=== PATIENT | male | born 1965 | race Caucasian/White ===

== ENCOUNTER 2016-11-23 21:48 | Emergency (ER) | payer MEDICAID | END 2016-11-23 22:39 | disposition left against medical advice (07) | LOC: ER 21:48 | DX: Z53.20 Procedure and treatment not carried out because of patient's decision for unspecified reasons (principal) ==

== ENCOUNTER 2017-05-06 21:44 | Emergency (ER) | payer MEDICAID ==
[2017-05-06] MEDS ORDERED: DIAZEPAM 5 MG TABLET PO ONE (22:04)
[2017-05-06] MEDS ORDERED: NAPROXEN 250 MG TABLET PO ONE (22:04)
--- NOTE | 2017-05-06 22:05 | Emergency Department Record ---
History of Present Illness - General Chief complaint: Lower Extremity Pain Stated complaint: SHARP LEG PAIN Time Seen by Provider: 05/06/17 22:01 Source: Patient Mode of Arrival: Ambulatory Limitations: No limitations - History of Present Illness Initial comments: 51 yo male presents to ED with a 2-day history of left inner thigh pain with walking. Patient denies specific strain or injury, and denies weakness, numbness, or tingling to the lower leg. Patient denies history of similar symptoms. MD Complaint: Extremity pain Onset/Timin -: Days(s) Location: Left, Thigh Severity scale (1-10): 10 Quality: Sharp Consistency: Constant Improves with: Nothing Worsens with: Nothing Associated Symptoms: Denies other symptoms - Related Data Previous Rx's Medication Instructions Recorded Diazepam [Valium] 5 mg PO Q8H #10 tab 05/06/17 Naproxen [Naprosyn] 500 mg PO BID #30 tablet 05/06/17 Allergies Allergy/AdvReac Type Severity Reaction Status Date / Time tramadol Allergy ITCHING Verified 05/13/16 17:01 Travel Screening - Travel/Exposure Within Last 30 Days Have you traveled within the last 30 days?: No Review of Systems Constitutional: Denies: Chills, Fever, Malaise, Night sweats Eyes: Denies: Eye discharge, Eye pain ENT: Denies: Congestion, Ear pain Respiratory: Denies: Cough, Dyspnea Cardiovascular: Denies: Chest pain, Dyspnea on exertion Endocrine: Denies: Fatigue, Heat or cold intolerance Gastrointestinal: Denies: Abdominal pain, Nausea, Vomiting Genitourinary: Denies: Incontinence, Retention Musculoskeletal: Reports: Myalgia. Denies: Arthralgia, Back pain, Gout, Joint swelling Skin: Denies: Bruising, Change in color Neurological: Denies: Abnormal gait, Confusion, Headache, Seizure Hematological/Lymphatic: Denies: Blood Clots Past Medical History - SOCIAL HISTORY Smoking Status: Current every day smoker Alcohol Use: None Drug Use: None - RESPIRATORY Hx Respiratory Disorders: No - CARDIOVASCULAR Hx Cardio Disorders: No - NEURO Hx Neuro Disorders: Yes Hx Headaches: Yes - GI Hx GI Disorders: No - Hx Genitourinary Disorders: No - ENDOCRINE Hx Endocrine Disorders: No - MUSCULOSKELETAL Hx Musculoskeletal Disorders: No - PSYCH Hx Psych Problems: Yes Hx Depression: Yes - HEMATOLOGY/ONCOLOGY Hx Hematology/Oncology Disorders: No Family Medical History Any Significant Family History?: Yes Hx Cancer: Grandparents Hx Heart Disease: Mother Physical Exam - General General Appearance: Alert, Oriented x3, Cooperative, Mild distress Limitations: No limitations - Head Head exam: Atraumatic, Normocephalic, Normal inspection Head exam detail: negative: Abrasion, Contusion, Zhang's sign, General tenderness, Hematoma, Laceration - Eye Eye exam: Normal appearance. negative: Conjunctival injection, Periorbital swelling, Periorbital tenderness, Scleral icterus - ENT Ear exam: negative: Auricular hematoma, Auricular trauma Nasal Exam: negative: Active bleeding, Discharge, Dried blood, Foreign body Mouth exam: negative: Drooling, Laceration, Muffled voice, Tongue elevation - Neck Neck exam: Normal inspection. negative: Meningismus, Tenderness - Respiratory Respiratory exam: Normal lung sounds bilaterally. negative: Rales, Respiratory distress, Rhonchi, Stridor - Cardiovascular Cardiovascular Exam: Regular rate, Normal rhythm, Normal heart sounds Peripheral Pulses: 3+: Dorsalis Pedis (L) - GI/Abdominal GI/Abdominal exam: Soft. negative: Rebound, Rigid, Tenderness - Rectal Rectal exam: Deferred - exam: Deferred - Extremities Extremities exam: Full ROM, Tenderness, Other (TTP to the proximal, medial thigh muscles on examination. No edema present, no calf pain/popliteal pain to suggest DVT on examination. Strong DPP present.). negative: Calf tenderness, Pedal edema - Back Back exam: Denies: CVA tenderness (R), CVA tenderness (L) - Neurological Neurological exam: Alert, Normal gait, Oriented X3 - Psychiatric Psychiatric exam: Normal affect, Normal mood - Skin Skin exam: Normal color. negative: Abrasion Type of lesion: negative: abrasion Course Vital Signs 05/06/17 21:50 Temperature 98.3 F Pulse Rate [ 111 H Pulse Ox Probe] Respiratory 20 Rate Blood Pressure 150/97 [Left Arm] Pulse Ox 98 - Reevaluation(s) Reevaluation #1: 05/06/17 22:08 Symptoms appear c/w with medial thigh muscle strain given his clinical examination and tenderness. No clinical evidence for DVT on examination. Will treat with Valium and Naprosyn for his symptoms. Disposition Disposition: Discharge Clinical Impression: Left thigh pain Disposition: Home, Self-Care Condition: (2) Stable Instructions: Muscle Strain (ED) Additional Instructions: Return to ED if your symptoms worsen or if you have any concerns. Valium and Naprosyn as directed. Follow-up with your family doctor in 3-5 days as directed. Prescriptions: Diazepam [Valium] 5 mg PO Q8H #10 tab Naproxen [Naprosyn] 500 mg PO BID #30 tablet Forms: Patient Portal Access Time of Disposition: 22:04 Quality - Quality Measures Quality Measures: N/A - Blood Pressure Screening Does Patient Have Any of the Following: No Blood Pressure Classification: Pre-Hypertensive BP Reading Systolic Measurement: 144 Diastolic Measurement: 88 Screening for High Blood Pressure: < Pre-Hypertensive BP, F/U Documented > [ G8950] Pre-Hypertensive Follow-up Interventions: Referral to alternative/primary care provider.
== END 2017-05-06 22:14 | disposition home or self-care (01) ==
LOC: ER 21:44
DX: S76.812A Strain of other specified muscles, fascia and tendons at thigh level, left thigh, initial encounter (principal); X58.XXXA Exposure to other specified factors, initial encounter
CPT/HCPCS: 99282

== ENCOUNTER 2017-08-03 17:13 | Emergency (ER) | payer MEDICAID ==
[2017-08-03 17:43] LABS: INFLUENZA A NEGATIVE (NEGATIVE); INFLUENZA B NEGATIVE (NEGATIVE)
--- NOTE | 2017-08-03 17:56 | Emergency Department Record ---
History of Present Illness - General Chief complaint: Flu Like Symptoms Stated complaint: FLU-LIKE SYMPTOMS Time Seen by Provider: 08/03/17 17:47 Source: Patient Mode of Arrival: Ambulatory Limitations: No limitations - History of Present Illness Initial comments: pt has been sick for a month. he has a cough productive green, congestion green , body aches, plugged ears. he has not had a fever MD Complaint: Lack of energy Onset/Timin -: Month(s) Consistency: Constant Improves with: None Worsens with: None Associated Symptoms: Headaches, Other - Corey Coma Scale Eye Response: (4) Open spontaneously Motor Response: (6) Obeys commands Verbal Response: (5) Oriented Corey Total: 15 - Related Data Previous Rx's Medication Instructions Recorded Naproxen [Naprosyn] 500 mg PO BID #30 tablet 05/06/17 Azithromycin [Zithromax] 250 mg PO DAILY #6 tab 08/03/17 Allergies Allergy/AdvReac Type Severity Reaction Status Date / Time tramadol Allergy ITCHING Verified 08/03/17 17:44 Travel Screening - Travel/Exposure Within Last 30 Days Have you traveled within the last 30 days?: No - Travel/Exposure Within Last Year Have you traveled outside the [place] in the last year?: No - Additonal Travel Details Have you been exposed to anyone with a communicable illness?: No - Travel Symptoms Symptom Screening: None Review of Systems Reviewed: No additional complaints except as noted below Constitutional: Reports: As per HPI. Denies: Chills, Fever, Malaise, Night sweats, Weakness, Weight change Eyes: Reports: As per HPI. Denies: Eye discharge, Eye pain, Photophobia, Vision change ENT: Reports: As per HPI. Denies: Congestion, Dental pain, Ear pain, Epistaxis , Hearing loss, Throat pain Respiratory: Reports: As per HPI. Denies: Cough, Dyspnea, Hemoptysis, Stridor, Wheezes Cardiovascular: Reports: As per HPI. Denies: Arrhythmia, Chest pain, Dyspnea on exertion, Edema, Murmurs, Orthopnea, Palpitations, Paroxysmal nocturnal dyspnea, Rheumatic Fever, Syncope Endocrine: Reports: As per HPI. Denies: Fatigue, Heat or cold intolerance, Polydipsia, Polyuria Gastrointestinal: Reports: As per HPI. Denies: Abdominal pain, Constipation, Diarrhea, Hematemesis, Hematochezia, Melena, Nausea, Vomiting Genitourinary: Reports: As per HPI. Denies: Dysuria, Frequency, Hematuria, Incontinence, Retention, Testicular pain, Testicular mass, Urgency Musculoskeletal: Reports: As per HPI. Denies: Arthralgia, Back pain, Gout, Joint swelling, Myalgia, Neck pain Skin: Reports: As per HPI. Denies: Bruising, Change in color, Change in hair/ nails, Lesions, Pruritus, Rash Neurological: Reports: As per HPI. Denies: Abnormal gait, Confusion, Headache, Numbness, Paresthesias, Seizure, Tingling, Tremors, Vertigo, Weakness Psychiatric: Reports: As per HPI. Denies: Anxiety, Auditory hallucinations, Depression, Homicidal thoughts, Suicidal thoughts, Visual hallucinations Hematological/Lymphatic: Reports: As per HPI. Denies: Anemia, Blood Clots, Easy bleeding, Easy bruising, Swollen glands Past Medical History - SOCIAL HISTORY Smoking Status: Light tobacco smoker (<10/day) Alcohol Use: None Drug Use: None - RESPIRATORY Hx Respiratory Disorders: No - CARDIOVASCULAR Hx Cardio Disorders: No - NEURO Hx Neuro Disorders: Yes Hx Headaches: Yes - GI Hx GI Disorders: No - Hx Genitourinary Disorders: No - ENDOCRINE Hx Endocrine Disorders: No - MUSCULOSKELETAL Hx Musculoskeletal Disorders: No - PSYCH Hx Psych Problems: Yes Hx Depression: Yes - HEMATOLOGY/ONCOLOGY Hx Hematology/Oncology Disorders: No Family Medical History Any Significant Family History?: No Hx Cancer: Grandparents Hx Heart Disease: Mother Physical Exam - General General Appearance: Alert, Oriented x3, Cooperative, Mild distress - Head Head exam: Normal inspection - Eye Eye exam: Normal appearance, PERRL, EOMI Pupils: Normal accommodation - ENT ENT exam: Normal exam, Mucous membranes moist, Normal external ear exam, Normal orophraynx, TM's normal bilaterally Ear exam: Normal external inspection. negative: External canal tenderness Nasal Exam: Normal inspection. negative: Discharge, Sinus tenderness Mouth exam: Normal external inspection, Tongue normal Teeth exam: Normal inspection. negative: Dental caries Throat exam: Normal inspection. negative: Tonsillar erythema, Tonsillar exudate - Neck Neck exam: Normal inspection, Full ROM. negative: Tenderness - Respiratory Respiratory exam: Normal lung sounds bilaterally. negative: Respiratory distress - Cardiovascular Cardiovascular Exam: Regular rate, Normal rhythm, Normal heart sounds - GI/Abdominal GI/Abdominal exam: Soft, Normal bowel sounds. negative: Tenderness - Rectal Rectal exam: Deferred - exam: Deferred - Extremities Extremities exam: Normal inspection, Full ROM, Normal capillary refill. negative: Tenderness - Back Back exam: Reports: Normal inspection, Full ROM. Denies: Muscle spasm, Rash noted, Tenderness - Neurological Neurological exam: Alert, CN II-XII intact, Normal gait, Oriented X3 - Psychiatric Psychiatric exam: Normal affect, Normal mood - Skin Skin exam: Dry, Intact, Normal color, Warm Course Vital Signs 08/03/17 17:37 Temperature 98.4 F Pulse Rate 97 H Respiratory 18 Rate Blood Pressure 137/98 Pulse Ox 98 Medical Decision Making - Lab Data Lab Results 08/03/17 Range/Units 17:21 Influenza Type A Ag Negative (NEGATIVE) Influenza Type B Ag Negative (NEGATIVE) Disposition Disposition: Discharge Clinical Impression: Bronchitis Disposition: Home, Self-Care Condition: (1) Good Instructions: Acute Bronchitis (ED) Additional Instructions: follow up with family doctor. return sooner if worse. rest. Prescriptions: Azithromycin [Zithromax] 250 mg PO DAILY #6 tab Forms: Patient Portal Access Quality - Quality Measures Quality Measures: N/A - Blood Pressure Screening Does Patient Have Any of the Following: No Blood Pressure Classification: Hypertensive Reading Systolic Measurement: 137 Diastolic Measurement: 98 Screening for High Blood Pressure: < First Hypertensive BP, F/U Documented > [ G8950] First Hypertensive Follow-up Interventions: Follow-up with rescreen GT 1 day and LT 4 weeks.
--- NOTE | 2017-08-04 15:09 | RADIOLOGY REPORT ---
EXAM: CHEST, TWO VIEWS HISTORY: COUGH, STUFFY NOSE, PLUGGED EARS. TECHNIQUE: PA and lateral views of the chest were obtained. Comparison: Two view chest 06/06/14. FINDINGS: The heart size is within normal limits. No definite acute infiltrate seen. No pleural effusion or pneumothorax evident. IMPRESSION: THE CHEST APPEARS ESSENTIALLY NEGATIVE WITH NO ACUTE INFILTRATE IDENTIFIED. JOB NUMBER: [id number] MTDD
== END 2017-08-03 18:49 | disposition home or self-care (01) ==
LOC: ER 17:13
DX: J20.9 Acute bronchitis, unspecified (principal); F17.210 Nicotine dependence, cigarettes, uncomplicated
CPT/HCPCS: 71046; 87400; 99283

== ENCOUNTER 2017-12-24 01:32 | Emergency (ER) | payer MEDICAID ==
--- NOTE | 2017-12-24 02:01 | Emergency Department Record ---
History of Present Illness - General Chief Complaint: Back Pain/Injury Stated Complaint: RT HIP/BACK "SCIATIC PAIN" Time Seen by Provider: 12/24/17 01:51 Source: Patient Mode of Arrival: Ambulatory Limitations: No limitations - History of Present Illness Initial Comments: 52 yo male presents with low right sided lumbar pain that radiates down his leg. The pain is sharp and occurs with certain movements. No weakness or numbness. The pain radiates does the entire leg. No changes in urination or bowel function. If he is still the pain is minimal. If he turns he gets a sudden pain in the lumbar area. No abdominal pain. No history of back surgery. He was seen the the [facility] in October. He had XRs then that demonstrated minor anterior wedging of L1, no fracture, multilevel degenerative changes. MD Complaint: Back pain Onset/Timin -: Days(s) Place: Home Radiation: Right leg Severity scale (1-10): 10 Quality: Aching Consistency: Constant, Getting worse Worsens With: Movement Context: Unknown - Related Data Home Medications Medication Instructions Recorded Confirmed Last Taken Amlodipine Besylate [Norvasc] 5 mg PO DAILY 12/24/17 12/24/17 12/23/17 Previous Rx's Medication Instructions Recorded Prednisone [Prednisone 20Mg] 20 mg PO DAILY #5 tab 12/24/17 Allergies Allergy/AdvReac Type Severity Reaction Status Date / Time tramadol Allergy ITCHING Verified 12/24/17 01:41 Travel Screening - Travel/Exposure Within Last 30 Days Have you traveled within the last 30 days?: No - Travel Symptoms Symptom Screening: None Review of Systems Constitutional: Denies: Chills, Fever, Malaise, Weakness Eyes: Denies: Eye discharge ENT: Denies: Congestion, Throat pain Respiratory: Denies: Cough, Dyspnea Cardiovascular: Denies: Chest pain, Dyspnea on exertion, Edema, Palpitations, Syncope Endocrine: Denies: Fatigue Gastrointestinal: Denies: Abdominal pain, Diarrhea, Nausea, Vomiting Genitourinary: Denies: Dysuria, Frequency, Hematuria Musculoskeletal: Reports: Back pain, Myalgia. Denies: Arthralgia, Joint swelling, Neck pain Skin: Denies: Bruising, Change in color, Rash Neurological: Denies: Abnormal gait, Confusion, Headache, Numbness, Tingling, Tremors, Vertigo, Weakness Psychiatric: Denies: Anxiety Hematological/Lymphatic: Denies: Easy bleeding, Easy bruising Past Medical History - SOCIAL HISTORY Smoking Status: Light tobacco smoker (<10/day) - RESPIRATORY Hx Respiratory Disorders: No - CARDIOVASCULAR Hx Cardio Disorders: Yes Hx Hypertension: Yes - NEURO Hx Neuro Disorders: Yes Hx Headaches: Yes - GI Hx GI Disorders: No - Hx Genitourinary Disorders: No - ENDOCRINE Hx Endocrine Disorders: No - MUSCULOSKELETAL Hx Musculoskeletal Disorders: Yes Hx Arthritis: Yes - PSYCH Hx Psych Problems: Yes Hx Depression: Yes - HEMATOLOGY/ONCOLOGY Hx Hematology/Oncology Disorders: No Family Medical History Any Significant Family History?: Yes Hx Cancer: Grandparents Hx Heart Disease: Mother Physical Exam - General General Appearance: Alert, Oriented x3, Cooperative, No acute distress Limitations: No limitations - Head Head exam: Atraumatic, Normal inspection - Eye Eye exam: Normal appearance. negative: Conjunctival injection - ENT ENT exam: Normal exam, Mucous membranes moist Ear exam: Normal external inspection Nasal Exam: Normal inspection Mouth exam: Normal external inspection - Neck Neck exam: Normal inspection, Full ROM. negative: Tenderness - Respiratory Respiratory exam: Normal lung sounds bilaterally. negative: Respiratory distress - Cardiovascular Cardiovascular Exam: Regular rate, Normal rhythm, Normal heart sounds - GI/Abdominal GI/Abdominal exam: Soft. negative: Distended, Guarding, Mass, Pulsatile mass, Rebound, Tenderness - Rectal Rectal exam: Deferred - exam: Deferred - Extremities Extremities exam: Normal inspection, Normal capillary refill. negative: Calf tenderness, Full ROM, Pedal edema, Tenderness Image of Full Body: 1 - tender to palpation, pain with leg raise to 30 degrees, hip flexion intact , foot flexion and extenison intact, sensation intact - Back Back exam: Reports: Muscle spasm, Paraspinal tenderness, Vertebral tenderness. Denies: CVA tenderness (R), CVA tenderness (L) - Neurological Neurological exam: Alert, Oriented X3 - Psychiatric Psychiatric exam: Normal affect, Normal mood. negative: Agitated, Anxious - Skin Skin exam: Dry, Intact, Normal color, Warm Course Vital Signs 12/24/17 01:34 Temperature 98.2 F Pulse Rate 98 H Respiratory 20 Rate Blood Pressure 129/93 Pulse Ox 97 - Reevaluation(s) Reevaluation #1: 12/24/17 02:28 The pain is improving We discussed home care and reasons to return to the ED He is to call his PCP The lumbar pain with right leg symptoms have occurred in the past. He may require MRI of the lumbar area if the pain continues Disposition Disposition: Discharge Clinical Impression: Sciatica Qualifiers: Laterality: right Qualified Code(s): M54.31 - Sciatica, right side Disposition: Home, Self-Care Condition: (1) Good Instructions: Sciatica (ED) Additional Instructions: Call your doctor for a recheck first of the week Return if the pain is uncontrolled, worse, and new symptoms such as weakness, numbness, changes in the bowel or bladder function You may need an outpatient MRI of the spine if the pain is not improving. You may take your Flexeril every 8 hours Prescriptions: Prednisone [Prednisone 20Mg] 20 mg PO DAILY #5 tab Forms: Patient Portal Access Time of Disposition: 02:24 Quality - Quality Measures Quality Measures: N/A, Headache (All Ages) - Headache: Neuroimaging Quality Measure: Measure #419: Overuse of Neuroimaging ICD10 Codes Entered: Yes Neurological Exam: Patient had a normal neurological exam. [G9535] Headache: Use of Neuroimaging: < CTA, CT, MRA or MRI was NOT ordered > [G9534] - Blood Pressure Screening Does Patient Have Any of the Following: Active Dx of HTN Blood Pressure Classification: Hypertensive Reading Systolic Measurement: 129 Diastolic Measurement: 93 Screening for High Blood Pressure: Patient Exclusion, Hx of HTN [G9744] Pre-Hypertensive Follow-up Interventions: Referral to alternative/primary care provider.
[2017-12-24] MEDS: KETOROLAC 30 MG/ML VIAL IM ONE (02:06)
[2017-12-24] MEDS: PREDNISONE 20 MG TAB PO ONE (02:08)
[2017-12-24] MEDS: HYDROCODONE/APAP 5/325MG TABLET PO ONE (02:34)
== END 2017-12-24 02:39 | disposition home or self-care (01) ==
LOC: ER 01:32
DX: M54.31 Sciatica, right side (principal); I10 Essential (primary) hypertension; F17.210 Nicotine dependence, cigarettes, uncomplicated
CPT/HCPCS: 96372; 99283; J1885; J7512

== ENCOUNTER 2017-12-27 10:26 | Emergency (ER) | payer MEDICAID ==
[2017-12-27] MEDS ORDERED: KETOROLAC 30 MG/ML VIAL IVP ONE (10:35)
[2017-12-27] MEDS ORDERED: MORPHINE SULFATE 10 MG/ML VIAL IVP ONE (10:35)
--- NOTE | 2017-12-27 10:36 | Emergency Department Record ---
History of Present Illness - General Chief Complaint: Back Pain/Injury Stated Complaint: BACK SPASMS Time Seen by Provider: 12/27/17 10:30 Source: Patient Mode of Arrival: Ambulatory Limitations: No limitations - History of Present Illness Initial Comments: 52 yo male presents with back pain, spasm. The symptoms started on Wednesday. His symptoms started in the back, down the leg. The leg is much improved. His back still has muscle spasms with movements. His right arm movement causes the pain to occur. No fevers, chills, nausea, vomiting or other current symptoms. No headache, weakness, dizziness. No chest pain, shortness of breath, cough, recent changes in his health. He did not fill the medications from his initial ED visit for back spasms. The prescriptions are waiting at the pharmacy. MD Complaint: Back pain -: Days(s) (5) Place: Home Radiation: Other Severity: Severe Quality: Aching, Sharp, Other Consistency: Constant Improves With: None, Immobilization Worsens With: Movement Associated Symptoms: Denies other symptoms - Related Data Previous Rx's Medication Instructions Recorded Prednisone [Prednisone 20Mg] 20 mg PO DAILY #5 tab 12/24/17 Hydrocodone/APAP 5/325Mg [Matador 1 each PO Q6H #11 tab 12/27/17 5Mg/325Mg] Allergies Allergy/AdvReac Type Severity Reaction Status Date / Time tramadol Allergy ITCHING Verified 12/27/17 10:33 Review of Systems Constitutional: Denies: Chills, Fever, Malaise, Weakness Eyes: Denies: Eye discharge ENT: Denies: Congestion, Ear pain, Throat pain Respiratory: Denies: Cough Cardiovascular: Denies: Chest pain, Palpitations, Syncope Endocrine: Denies: Fatigue, Polydipsia, Polyuria Gastrointestinal: Denies: Abdominal pain, Diarrhea, Nausea, Vomiting Genitourinary: Denies: Dysuria, Frequency, Hematuria Musculoskeletal: Reports: Back pain, Myalgia, Neck pain. Denies: Arthralgia Skin: Denies: Bruising, Change in color, Rash Neurological: Denies: Abnormal gait, Confusion, Headache, Numbness, Paresthesias , Tingling, Tremors, Vertigo, Weakness Psychiatric: Denies: Anxiety Hematological/Lymphatic: Denies: Easy bleeding, Easy bruising Past Medical History - SOCIAL HISTORY Smoking Status: Light tobacco smoker (<10/day) - RESPIRATORY Hx Respiratory Disorders: No - CARDIOVASCULAR Hx Cardio Disorders: Yes Hx Hypertension: Yes - NEURO Hx Neuro Disorders: Yes Hx Headaches: Yes - GI Hx GI Disorders: No - Hx Genitourinary Disorders: No - ENDOCRINE Hx Endocrine Disorders: No - MUSCULOSKELETAL Hx Musculoskeletal Disorders: Yes Hx Arthritis: Yes - PSYCH Hx Psych Problems: Yes Hx Depression: Yes - HEMATOLOGY/ONCOLOGY Hx Hematology/Oncology Disorders: No Family Medical History Hx Cancer: Grandparents Hx Heart Disease: Mother Physical Exam - General General Appearance: Alert, Oriented x3, Cooperative, No acute distress Limitations: No limitations - Head Head exam: Atraumatic, Normocephalic, Normal inspection - Eye Eye exam: Normal appearance, PERRL. negative: Conjunctival injection, Scleral icterus - ENT ENT exam: Normal exam, Mucous membranes moist, Normal orophraynx Ear exam: Normal external inspection Nasal Exam: Normal inspection Mouth exam: Normal external inspection - Neck Neck exam: Normal inspection - Respiratory Respiratory exam: Normal lung sounds bilaterally. negative: Respiratory distress - Cardiovascular Cardiovascular Exam: Regular rate, Normal rhythm, Normal heart sounds Peripheral Pulses: 2+: Radial (R), Radial (L) - GI/Abdominal GI/Abdominal exam: Soft. negative: Tenderness - Rectal Rectal exam: Deferred - exam: Deferred - Extremities Extremities exam: Normal inspection, Normal capillary refill. negative: Calf tenderness, Full ROM, Joint swelling, Pedal edema, Tenderness - Back Back exam: Reports: Normal inspection, Muscle spasm, Paraspinal tenderness, Tenderness. Denies: Full ROM Image of Body Front/Back: 1 - tender under the right scapular area, pain occurs in this area with arm movements. - Neurological Neurological exam: Alert, Normal gait, Oriented X3, Reflexes normal. negative: Abnormal gait, Altered, Motor sensory deficit - Psychiatric Psychiatric exam: Normal affect, Normal mood. negative: Agitated, Anxious - Skin Skin exam: Dry, Intact, Normal color, Warm. negative: Cyanosis, Diaphoretic, Erythema, Mottled Course - Reevaluation(s) Reevaluation #1: EKG #1: 1049 Rate: 108 Rhythm: sinus tach Eunice: normal Intervals: normal ST segments: normal EKG performed due to right shoulder pain. The pain is atypical in that it is completely reproducible with movement. 12/27/17 11:09 No acute changes on the CBC or BMP except mild decrease in the K of 3.2 12/27/17 14:02 The patient informed be he had not filled his prescription from his last ED visit for back spasm. He states the prescriptions are ready at his pharmacy. He will now fill those. He is to see his doctor for his muscle spasm and follow up His pain is greatly improved. No pain at rest. With twisting it still occurs. 12/27/17 15:20 The patient is up ambulating well. Pain is controlled. He has an appointment with his PCP today. Medical Decision Making - Lab Data Result diagrams: 12/27/17 10:45 12/27/17 10:45 Disposition Disposition: Discharge Clinical Impression: Spasm of back muscles Disposition: Home, Self-Care Condition: (1) Good Instructions: Muscle Spasm (ED) Additional Instructions: Fill your prescriptions that were provided your first ER visit Follow up with your doctor You may need MRI or physical therapy to help with your back spasms Prescriptions: Hydrocodone/APAP 5/325Mg [Matador 5Mg/325Mg] 1 each PO Q6H #11 tab Forms: Patient Portal Access Time of Disposition: 14:02 Quality - Quality Measures Quality Measures: N/A, Headache (All Ages) - Headache: Neuroimaging Quality Measure: Measure #419: Overuse of Neuroimaging ICD10 Codes Entered: Yes Neurological Exam: Patient had a normal neurological exam. [G9535] Headache: Use of Neuroimaging: < CTA, CT, MRA or MRI was NOT ordered > [G9534] - Blood Pressure Screening Does Patient Have Any of the Following: Active Dx of HTN Blood Pressure Classification: Hypertensive Reading Systolic Measurement: 148 Diastolic Measurement: 115 Screening for High Blood Pressure: Patient Exclusion, Hx of HTN [G9744]
[2017-12-27] MEDS ORDERED: MORPHINE SULFATE 4MG/ML PREFILLED SYRINGE IVP ONE ×2 (10:38→12:38)
[2017-12-27 10:49] LABS: BASO % 0.3 % (0-6); EOS % 0.8 % (0-6); GRAN % 72.6 % (47-80); HEMATOCRIT 47.8 % (42.0-52.0); HEMOGLOBIN 17.2 gm/dl (14.0-18.0); LYMPH % 16.9 % (16-45); MEAN CELL VOLUME 91.4 fl (81-97); MEAN CORPUSCULAR HEMOGLOBIN 32.9 pg (27-33); MEAN PLATELET VOLUME 10.2 fl (7.4-10.4); MONO % 9.4 % (0-9); PLATELET COUNT 204 K/uL (130-400); RED BLOOD COUNT 5.23 M/uL (4.40-5.70); RED CELL DISTRIBUTION WIDTH 12.6 % (11.5-14.5); WHITE BLOOD COUNT W/O DIFF 11.8 K/uL (4.2-12.2)
[2017-12-27 10:59] LABS: BLOOD UREA NITROGEN 17 mg/dL (6-20); CREATININE 0.9 mg/dL (0.7-1.2); EST GLOMERULAR FILTRATION RATE > 60 mL/min
[2017-12-27 11:01] LABS: GLUCOSE,RANDOM 137 mg/dL (74-109)
[2017-12-27] MEDS ORDERED: POTASSIUM CHLORIDE 20 MEQ TABLET PO ONE (11:07)
[2017-12-27] MEDS ORDERED: DIAZEPAM 5 MG TABLET PO ONE (12:38)
== END 2017-12-27 15:27 | disposition home or self-care (01) ==
LOC: ER 10:26
DX: M62.830 Muscle spasm of back (principal); M25.511 Pain in right shoulder; I10 Essential (primary) hypertension; F17.210 Nicotine dependence, cigarettes, uncomplicated
CPT/HCPCS: 80048; 85025; 93005; 93010; 96374; 96375; 96376; 99284; J1885; J2274

== ENCOUNTER 2018-02-20 03:34 | Emergency (ER) | payer MEDICAID ==
[2018-02-20] MEDS ORDERED: KETOROLAC 30 MG/ML VIAL IM ONE (04:04)
[2018-02-20] MEDS ORDERED: ORPHENADRINE CITRATE 60MG/2ML VIAL IM ONE (04:04)
--- NOTE | 2018-02-20 04:09 | Emergency Department Record ---
History of Present Illness - General Chief Complaint: Back Pain/Injury Stated Complaint: BACK PAIN Time Seen by Provider: 02/20/18 04:04 Source: Patient - History of Present Illness Initial Comments: The patient states that his low back has been causing him pain which he noticed when he got up this past morning. It spasms in the right lower sacral area and his thighs even feel weak on and off at times. He denies injury of his back. He has not taken anything for his back. He denies bowel or bladder incontinence or retention. He has no fevers, chills urinary symptoms, abdominal pain or URI symptoms. H is being treted for htn, GERD, and leg cramps. Onset/Timin -: Days(s) Similar Symptoms Previously: No Place: Home Radiation: Left leg, Right leg Severity: Severe Severity scale (1-10): 10 Quality: Aching Consistency: Constant, Getting worse Improves With: None Worsens With: Movement Context: Unknown Associated Symptoms: Denies other symptoms - Related Data Home Medications Medication Instructions Recorded Confirmed Last Taken Magnesium Oxide [Magnesium] 500 mg PO DAILY 02/20/18 02/20/18 Unknown Multivitamin [Daily Multiple 1 each PO DAILY 02/20/18 02/20/18 Unknown Vitamin] Omeprazole 40 mg PO DAILY 02/20/18 02/20/18 Unknown Allergies Allergy/AdvReac Type Severity Reaction Status Date / Time tramadol Allergy ITCHING Verified 12/27/17 10:33 Travel Screening - Travel/Exposure Within Last 30 Days Have you traveled within the last 30 days?: No - Travel Symptoms Symptom Screening: None Review of Systems Reviewed: No additional complaints except as noted below Constitutional: Reports: As per HPI. Denies: Chills, Fever, Malaise, Night sweats, Weakness, Weight change Eyes: Reports: As per HPI. Denies: Eye discharge, Eye pain, Photophobia, Vision change ENT: Reports: As per HPI. Denies: Congestion, Dental pain, Ear pain, Epistaxis , Hearing loss, Throat pain Respiratory: Reports: As per HPI. Denies: Cough, Dyspnea, Hemoptysis, Stridor, Wheezes Cardiovascular: Reports: As per HPI. Denies: Arrhythmia, Chest pain, Dyspnea on exertion, Edema, Murmurs, Orthopnea, Palpitations, Paroxysmal nocturnal dyspnea, Rheumatic Fever, Syncope Endocrine: Reports: As per HPI. Denies: Fatigue, Heat or cold intolerance, Polydipsia, Polyuria Gastrointestinal: Reports: As per HPI. Denies: Abdominal pain, Constipation, Diarrhea, Hematemesis, Hematochezia, Melena, Nausea, Vomiting Genitourinary: Reports: As per HPI. Denies: Dysuria, Frequency, Hematuria, Incontinence, Retention, Testicular pain, Testicular mass, Urgency Musculoskeletal: Reports: As per HPI. Denies: Arthralgia, Back pain, Gout, Joint swelling, Myalgia, Neck pain Skin: Reports: As per HPI. Denies: Bruising, Change in color, Change in hair/ nails, Lesions, Pruritus, Rash Neurological: Reports: As per HPI. Denies: Abnormal gait, Confusion, Headache, Numbness, Paresthesias, Seizure, Tingling, Tremors, Vertigo, Weakness Psychiatric: Reports: As per HPI. Denies: Anxiety, Auditory hallucinations, Depression, Homicidal thoughts, Suicidal thoughts, Visual hallucinations Hematological/Lymphatic: Reports: As per HPI. Denies: Anemia, Blood Clots, Easy bleeding, Easy bruising, Swollen glands Past Medical History - SOCIAL HISTORY Smoking Status: Light tobacco smoker (<10/day) Alcohol Use: None Drug Use: None - RESPIRATORY Hx Respiratory Disorders: No - CARDIOVASCULAR Hx Cardio Disorders: Yes Hx Hypertension: Yes - NEURO Hx Neuro Disorders: Yes Hx Headaches: Yes - GI Hx GI Disorders: No - Hx Genitourinary Disorders: No - ENDOCRINE Hx Endocrine Disorders: No - MUSCULOSKELETAL Hx Musculoskeletal Disorders: Yes Hx Arthritis: Yes - PSYCH Hx Psych Problems: Yes Hx Depression: Yes - HEMATOLOGY/ONCOLOGY Hx Hematology/Oncology Disorders: No Family Medical History Any Significant Family History?: Yes Hx Cancer: Grandparents Hx Heart Disease: Mother Physical Exam - General General Appearance: Alert, Oriented x3, Cooperative, Moderate distress (painful when he attempts to rise to sitting position) - Head Head exam: Normal inspection - Eye Eye exam: Normal appearance, PERRL, EOMI. negative: Conjunctival injection, Nystagmus Pupils: Normal accommodation - ENT ENT exam: Normal exam, Mucous membranes moist, Normal external ear exam, Normal orophraynx, TM's normal bilaterally Ear exam: Normal external inspection. negative: External canal tenderness Nasal Exam: Normal inspection. negative: Discharge, Sinus tenderness Mouth exam: Normal external inspection, Tongue normal Teeth exam: Normal inspection. negative: Dental caries Throat exam: Normal inspection. negative: Tonsillar erythema, Tonsillar exudate - Neck Neck exam: Normal inspection, Full ROM. negative: Lymphadenopathy, Meningismus , Tenderness - Respiratory Respiratory exam: Normal lung sounds bilaterally. negative: Accessory muscle use, Prolonged expiratory, Respiratory distress, Rhonchi, Stridor, Wheezes - Cardiovascular Cardiovascular Exam: Regular rate, Normal rhythm, Normal heart sounds - GI/Abdominal GI/Abdominal exam: Soft, Normal bowel sounds. negative: Distended, Tenderness - Rectal Rectal exam: Deferred - exam: Deferred - Extremities Extremities exam: Normal inspection, Full ROM, Normal capillary refill. negative: Calf tenderness, Pedal edema, Tenderness - Back Back exam: Reports: Normal inspection, Full ROM, Tenderness (tender over right SI joint on palpation. ). Denies: CVA tenderness (R), CVA tenderness (L), Muscle spasm, Paraspinal tenderness, Rash noted, Vertebral tenderness - Neurological Neurological exam: Alert, CN II-XII intact, Normal gait (slow but normal ambulation), Oriented X3, Reflexes normal. negative: Motor sensory deficit - Psychiatric Psychiatric exam: Normal affect, Normal mood - Skin Skin exam: Dry, Intact, Normal color, Warm Course Vital Signs 02/20/18 03:39 Temperature 98.2 F Pulse Rate [ 87 Pulse Ox Probe] Respiratory 20 Rate Blood Pressure 132/90 [Right Arm] Pulse Ox 99 - Reevaluation(s) Reevaluation #1: Feeling slightly better after the shot. He prefers to go home to try to get some sleep. 02/20/18 04:39 Medical Decision Making - Management Options MDM Management: No Additional Work-up Planned Disposition Disposition: Discharge Clinical Impression: Sciatica of right side Disposition: Home, Self-Care Condition: (1) Good Instructions: Low Back Strain (ED), Sciatica (ED) Additional Instructions: Home rest. Continue present medications. No lifting bending twisting 3-5 days. Take benadryl when you get home to help with sleeping tonight. Follow up with your PCP for recheck this week if not improved. Quality - Quality Measures Quality Measures: N/A - Blood Pressure Screening Does Patient Have Any of the Following: No Blood Pressure Classification: Hypertensive Reading Systolic Measurement: 132 Diastolic Measurement: 90 Screening for High Blood Pressure: Patient Exclusion, Hx of HTN [G9744]
[2018-02-20 04:12] LABS: URINE APPEARANCE CLEAR; URINE BILIRUBIN NEGATIVE (NEGATIVE); URINE BLOOD NEGATIVE (NEGATIVE); URINE COLOR YELLOW; URINE GLUCOSE (UA) NEGATIVE (NEGATIVE); URINE KETONE TRACE (NEGATIVE); URINE LEUKOCYTE ESTERASE NEGATIVE (NEGATIVE); URINE NITRITE NEGATIVE (NEGATIVE); URINE PROTEIN TRACE (NEGATIVE)
[2018-02-20 04:22] LABS: URINE BACTERIA NONE SEEN; URINE EPITHELIAL CELLS 0 - 2 (FEW); URINE MUCUS LIGHT; URINE RBC NONE SEEN (NONE SEEN); URINE WBC NONE SEEN (0-2/hpf)
[2018-02-20 04:23] LABS: URINE HYALINE CAST 0 - 5 /lpf
[2018-02-20] MEDS ORDERED: DIPHENHYDRAMINE HCL 25 MG CAPSULE PO ONE (04:38)
== END 2018-02-20 04:57 | disposition home or self-care (01) ==
LOC: ER 03:34
DX: M54.41 Lumbago with sciatica, right side (principal); M79.652 Pain in left thigh; M79.651 Pain in right thigh; I10 Essential (primary) hypertension; F17.210 Nicotine dependence, cigarettes, uncomplicated
CPT/HCPCS: 81001; 96372; 99283; J1885; J2360

== ENCOUNTER 2018-11-24 12:28 | Day surgery (SDC) | payer MEDICAID ==
[2018-11-24] MEDS ORDERED: LIDOCAINE 2% MDV (20MG/ML) 20ML VIAL IV ONE (12:29)
[2018-11-24] MEDS ORDERED: PROPOFOL 10 MG/ML VIAL IV ONE (12:29)
--- NOTE | 2018-11-25 12:20 | Operative Note ---
OPERATION: Screening COLONOSCOPY. PREOPERATIVE DIAGNOSIS: Episodic change in bowel habits and hematochezia. POSTOPERATIVE DIAGNOSES: 1. Sigmoid diverticulosis. 2. External hemorrhoids. PROCEDURE: After informed consent was obtained from the patient, he was placed in the left lateral decubitus position in the endoscopy suite, sedated and monitored by the department of anesthesia. Digital rectal exam revealed non- thrombosed external hemorrhoids. A well-lubricated [id number] colonoscope was inserted into the rectum and advanced to the cecum. Preparation quality was fair. The cecum, cecal bulb, ileocecal valve, and appendiceal orifice were inspected and were unremarkable. The ascending colon was inspected and was unremarkable. The endoscope was advanced back into the cecum. A second look at the cecum was unremarkable again. The endoscope was then carefully tracked through the ascending colon, transverse colon, descending colon, sigmoid colon, and rectum. No polyps or mass lesions were seen throughout the length of the colon. There were mild diverticular changes in the sigmoid colon. The patient had a short rectum. As a result, I was unable to invert the adult colonoscope. I did perform inspection in retrograde fashion which was unremarkable other than hemorrhoids being noted. RECOMMENDATIONS: The patient should follow a high-fiber diet and use a fiber supplement such as Citrucel or Benefiber. Given its fair prep, I would recommend a repeat exam in 3 years. As always, thank you for allowing me to participate in the healthcare of your patients. CC: DO YESSY Gillespie
== END 2018-11-24 15:15 | disposition home or self-care (01) ==
LOC: HOP 12:28
PROVIDERS: ATTEND Internal Medicine Gastroenterology
DX: R19.4 Change in bowel habit (principal); K92.1 Melena; K57.30 Diverticulosis of large intestine without perforation or abscess without bleeding; I10 Essential (primary) hypertension; R12 Heartburn

== ENCOUNTER 2019-08-25 12:50 | Emergency (ER) | payer MEDICAID ==
[2019-08-25 13:45] LABS: ABSOLUTE NEUTROPHIL COUNT 7.91; BASO % 0.2 % (0-6); EOS % 0.4 % (0-6); GRAN % 74.2 % (47-80); HEMATOCRIT 45.9 % (42.0-52.0); HEMOGLOBIN 15.5 gm/dl (14.0-18.0); LYMPH % 14.7 % (16-45); MEAN CELL VOLUME 92.5 fl (81-97); MEAN CORPUSCULAR HEMOGLOBIN 31.3 pg (27-33); MEAN CORPUSCULAR HGB CONC 33.8 g/dl (32-36); MEAN PLATELET VOLUME 10.4 fl (7.4-10.4); MONO % 10.5 % (0-9); PLATELET COUNT 175 K/uL (130-400); RED BLOOD COUNT 4.96 M/uL (4.40-5.70); RED CELL DISTRIBUTION WIDTH 12.7 % (11.5-14.5); WHITE BLOOD COUNT W/O DIFF 10.7 K/uL (4.2-12.2)
[2019-08-25 13:54] LABS: BLOOD UREA NITROGEN 22 mg/dL (6-20)
[2019-08-25 13:55] LABS: CREATININE 1.2 mg/dL (0.7-1.2); EST GLOMERULAR FILTRATION RATE > 60 mL/min
[2019-08-25 13:57] LABS: GLUCOSE,RANDOM 385 mg/dL (74-109)
--- NOTE | 2019-08-25 14:16 | Emergency Department Record ---
History of Present Illness - General Chief Complaint: Ankle/Foot Injury Stated Complaint: LT FOOT PAIN Time Seen by Provider: 08/25/19 13:07 Source: Patient Mode of Arrival: Ambulatory Limitations: No limitations - History of Present Illness Initial Comments: pt is having l leg and foot pain. he has swelling of his foot. he is a newly dxd diabetic and was just d/cd from hospital MD Complaint: Other Onset/Timin -: Days(s) Injury: Leg: Left, Foot: Left Type of Injury: Other Place: Home Severity scale (1-10): 10 Improves With: Nothing Worsens With: Palpation, Weight bearing Context: Other Associated Symptoms: Unable to bear weight - Related Data Previous Rx's Medication Instructions Recorded Blood Sugar Diagnostic [Blood 1 each MC BID #60 strip 08/23/19 Glucose Test] Insulin Detemir [Levemir Flextouch] 15 unit SQ BID #5 syringe 08/23/19 Insulin Glargine,Hum.rec.anlog 15 unit SQ BID #5 insuln.pen 08/23/19 [Basaglar Kwikpen U-100] Lancets 1 each MC BID #60 each 08/23/19 Lisinopril 10 mg PO DAILY #30 tab 08/23/19 Metformin HCl [Glucophage Ir] 500 mg PO BIDWM #60 tablet 08/23/19 Pen Needle, Diabetic [Pen Needle] 1 each MC BID #60 dis.needle 08/23/19 Indomethacin [Indocin] 50 mg PO Q12HR #14 capsule 08/25/19 Allergies Allergy/AdvReac Type Severity Reaction Status Date / Time tramadol Allergy ITCHING Verified 07/06/19 11:18 Travel/Exposure Screening - Travel/Exposure Within Last 30 Days Have you traveled within the last 30 days?: No - Additonal Travel/Exposure Details Have you been exposed to anyone with a communicable illness?: No Review of Systems Reviewed: No additional complaints except as noted below Constitutional: Reports: As per HPI. Denies: Chills, Fever, Malaise, Night sweats, Weakness, Weight change Eyes: Reports: As per HPI. Denies: Eye discharge, Eye pain, Photophobia, Vision change ENT: Reports: As per HPI. Denies: Congestion, Dental pain, Ear pain, Epistaxis, Hearing loss, Throat pain Respiratory: Reports: As per HPI. Denies: Cough, Dyspnea, Hemoptysis, Stridor, Wheezes Cardiovascular: Reports: As per HPI. Denies: Arrhythmia, Chest pain, Dyspnea on exertion, Edema, Murmurs, Orthopnea, Palpitations, Paroxysmal nocturnal dyspnea, Rheumatic Fever, Syncope Endocrine: Reports: As per HPI, Fatigue, Polydipsia, Polyuria. Denies: Heat or cold intolerance Gastrointestinal: Reports: As per HPI. Denies: Abdominal pain, Constipation, Diarrhea, Hematemesis, Hematochezia, Melena, Nausea, Vomiting Genitourinary: Reports: As per HPI. Denies: Dysuria, Frequency, Hematuria, Incontinence, Retention, Testicular pain, Testicular mass, Urgency Musculoskeletal: Reports: As per HPI. Denies: Arthralgia, Back pain, Gout, Joint swelling, Myalgia, Neck pain Skin: Reports: As per HPI. Denies: Bruising, Change in color, Change in hair/ nails, Lesions, Pruritus, Rash Neurological: Reports: As per HPI. Denies: Abnormal gait, Confusion, Headache, Numbness, Paresthesias, Seizure, Tingling, Tremors, Vertigo, Weakness Psychiatric: Reports: As per HPI. Denies: Anxiety, Auditory hallucinations, Depression, Homicidal thoughts, Suicidal thoughts, Visual hallucinations Hematological/Lymphatic: Reports: As per HPI. Denies: Anemia, Blood Clots, Easy bleeding, Easy bruising, Swollen glands Past Medical History - SOCIAL HISTORY Smoking Status: Current every day smoker - RESPIRATORY Hx Respiratory Disorders: Yes Hx Sleep Apnea: Yes (no cpap) - CARDIOVASCULAR Hx Cardio Disorders: Yes Hx Chest Pain: Yes (workup normal) Hx Hypertension: Yes - NEURO Hx Neuro Disorders: Yes Hx Headaches: Yes - GI Hx GI Disorders: Yes Hx Reflux: Yes - Hx Genitourinary Disorders: No - ENDOCRINE Hx Endocrine Disorders: Yes Hx Diabetes: Yes (Type 2) - MUSCULOSKELETAL Hx Musculoskeletal Disorders: Yes Hx Arthritis: Yes (Right foot, shoulder, back) - PSYCH Hx Psych Problems: Yes Hx Depression: Yes - HEMATOLOGY/ONCOLOGY Hx Hematology/Oncology Disorders: No Family Medical History Any Significant Family History?: Yes Hx Cancer: Grandparents Hx Heart Disease: Mother Physical Exam - General General Appearance: Alert, Oriented x3, Cooperative, Mild distress - Head Head exam: Normal inspection - Eye Eye exam: Normal appearance, PERRL, EOMI, Nystagmus Pupils: Normal accommodation - ENT ENT exam: Normal exam, Mucous membranes moist, Normal external ear exam, Normal orophraynx Ear exam: Normal external inspection. negative: External canal tenderness Nasal Exam: Normal inspection. negative: Discharge, Sinus tenderness Mouth exam: Normal external inspection, Tongue normal Teeth exam: Normal inspection. negative: Dental caries Throat exam: Normal inspection. negative: Tonsillar erythema, Tonsillar exudate - Neck Neck exam: Normal inspection, Full ROM. negative: Tenderness - Respiratory Respiratory exam: Normal lung sounds bilaterally. negative: Respiratory distress - Cardiovascular Cardiovascular Exam: Normal rhythm, Normal heart sounds, Tachycardia - GI/Abdominal GI/Abdominal exam: Soft, Normal bowel sounds. negative: Tenderness - Rectal Rectal exam: Deferred - exam: Deferred - Extremities Extremities exam: Calf tenderness, Full ROM, Normal capillary refill, Tenderness Image of Feet: 1 - tender - Back Back exam: Reports: Normal inspection, Full ROM. Denies: Muscle spasm, Rash noted, Tenderness - Neurological Neurological exam: Alert, CN II-XII intact, Normal gait, Oriented X3 - Psychiatric Psychiatric exam: Normal affect, Normal mood - Skin Skin exam: Dry, Intact, Normal color, Warm Course Vital Signs 08/25/19 12:56 Temperature 98.5 F Pulse Rate 124 H Respiratory 20 Rate Blood Pressure 138/105 Pulse Ox 98 - Reevaluation(s) Reevaluation #1: 08/25/19 15:51 doppler and xray are neg. Reevaluation #2: 08/25/19 15:58 pts bs improved. pt feels better Medical Decision Making - Lab Data Result diagrams: 08/25/19 13:40 08/25/19 13:40 Lab Results 08/25/19 08/25/19 Range/Units 13:40 13:40 WBC 10.7 (4.2-12.2) K/uL RBC 4.96 (4.40-5.70) M/uL Hgb 15.5 (14.0-18.0) gm/dl Hct 45.9 (42.0-52.0) % MCV 92.5 (81-97) fl MCH 31.3 (27-33) pg MCHC 33.8 (32-36) g/dl RDW 12.7 (11.5-14.5) % Plt Count 175 (130-400) K/uL MPV 10.4 (7.4-10.4) fl Gran % 74.2 (47-80) % Lymphocytes % 14.7 L (16-45) % Monocytes % 10.5 H (0-9) % Eosinophils % 0.4 (0-6) % Basophils % 0.2 (0-6) % Absolute Neutrophils 7.91 Sodium 135 L (136-145) mmol/L Potassium 3.7 (3.4-4.5) mmol/L Chloride 92 L (98-107) mmol/L Carbon Dioxide 29.0 (22-29) mmol/L Anion Gap 14.0 (7-16) BUN 22 H (6-20) mg/dL Creatinine 1.2 (0.7-1.2) mg/dL Estimated GFR > 60 mL/min Random Glucose 385 H (74-109) mg/dL Uric Acid 4.80 (3.4-7.0) mg/dL Calcium 9.3 (8.6-10.0) mg/dL Disposition Disposition: Discharge Clinical Impression: Gout Qualifiers: Gout site: foot Gout etiology: idiopathic Chronicity: acute Laterality: left Qualified Code(s): M10.072 - Idiopathic gout, left ankle and foot Disposition: Home, Self-Care Condition: (1) Good Instructions: Gout (ED), Low Purine Diet (ED) Additional Instructions: follow up with family doctor. return sooner if worse. ice and elevate Prescriptions: Indomethacin [Indocin] 50 mg PO Q12HR #14 capsule Forms: Patient Portal Access Quality - Quality Measures Quality Measures: N/A - Blood Pressure Screening Does Patient Have Any of the Following: Active Dx of HTN Blood Pressure Classification: Hypertensive Reading Systolic Measurement: 138 Diastolic Measurement: 105 Screening for High Blood Pressure: Patient Exclusion, Hx of HTN [G9744]
[2019-08-25] MEDS ORDERED: 0.9 % SODIUM CHLORIDE 1,000 ML BAG IV ONE (14:34)
[2019-08-25] MEDS ORDERED: METFORMIN 500 MG TABLET PO ONE (14:43)
--- NOTE | 2019-08-25 15:31 | RADIOLOGY REPORT ---
EXAMINATION: Left Foot, Minimum Three Views EXAM DATE: 08/25/2019 3:01 PM INDICATION: pain ENCOUNTER: Initial FINDINGS: Mild osteoarthritis at the first metatarsophalangeal joint. No acute abnormality. Dictated by: Errol Sutton MD on 08/25/2019 3:28 PM. .
--- NOTE | 2019-08-25 15:32 | ULTRASOUND REPORT ---
EXAMINATION: Left Lower Extremity Venous Duplex Doppler Ultrasound EXAM DATE: 08/25/2019 3:02 PM TECHNIQUE: Real-time B-mode imaging with and without compression was used to evaluate the left lower extremity for deep venous thrombosis (DVT). Duplex Doppler with color and spectral Doppler was used . INDICATION: pain COMPARISON: None FINDINGS: Left Common Femoral Vein: No DVT. Left Femoral Vein: No DVT. Left Popliteal Vein: No DVT. Left Proximal Deep Femoral Vein: No DVT. Left Posterior Tibial Veins: No DVT. Left Peroneal Veins: No DVT. Left proximal Great Saphenous Vein: No thrombus. Duplex Doppler: Spectral Doppler waveforms show normal respiratory phasicity in the common femoral vein. Additional Findings: There is an anechoic area measuring up to 2.5 cm noted laterally just below the ankle Malleolus which may relate to a seroma or focal edema. IMPRESSION: There is no deep venous thrombosis in the visualized deep veins of the left lower extremity. Dictated by: Braulio Sanchez DO on 08/25/2019 3:30 PM. .
[2019-08-25] MEDS ORDERED: HYDROMORPHONE HCL 2 MG/ML VIAL IVP ONE (15:53)
== END 2019-08-25 16:27 | disposition home or self-care (01) ==
LOC: ER 12:50
DX: M10.072 Idiopathic gout, left ankle and foot (principal); M79.672 Pain in left foot; M79.662 Pain in left lower leg; I10 Essential (primary) hypertension; E11.9 Type 2 diabetes mellitus without complications; F17.210 Nicotine dependence, cigarettes, uncomplicated; Z79.4 Long term (current) use of insulin
CPT/HCPCS: 80048; 82947; 84550; 85025; 99284; J7030